=== PATIENT | male | born 1960 | race American Indian/Alaskan Native ===

== ENCOUNTER 2018-03-27 21:03 | Emergency (ER) | payer SELFPAY ==
[2018-03-27 21:03] VITALS: BMI 24.3
[2018-03-27 22:17] LABS: MEAN CORPUSCULAR HGB CONC 30.1 g/dL (33.0-37.0); MEAN PLATELET VOLUME 8.4 fL (7.2-11.7); NRBC % 0.5 % (0.0-2.0)
[2018-03-27 22:21] LABS: URINE BILIRUBIN NEGATIVE (NEGATIVE); URINE CLARITY Clear (Clear); URINE COLOR Yellow (YELLOW); URINE GLUCOSE (UA) NORMAL (Normal); URINE LEUKOCYTE ESTERASE NEG Leu/uL (Negative); URINE PROTEIN NEGATIVE (NEGATIVE)
[2018-03-27 22:29] LABS: BASO % 0.6 % (0.0-2.0); EOS % 1.1 % (0.0-4.0); HEMOGLOBIN 6.8 g/dL (12.0-18.0); LYMPH # 2.9 K/uL (1.0-4.3); LYMPH % 75.4 % (20.0-40.0); MEAN CELL VOLUME 65.7 fL (80.0-94.0); MEAN CORPUSCULAR HEMOGLOBIN 19.8 pg (27.0-31.0); MONO # 0.3 K/uL (0.0-0.8); MONO % 8.6 % (0.0-10.0); NEUT # 0.5 K/uL (1.8-7.0); NEUT % 14.3 % (50.0-75.0); RBC 3.46 Mil/uL (4.40-5.90); RED CELL DISTRIBUTION WIDTH 22.8 % (11.5-14.5); WHITE BLOOD COUNT 3.8 K/uL (4.8-10.8)
[2018-03-27 22:32] LABS: PLATELET COUNT 48 K/uL (130-400)
[2018-03-27 22:35] LABS: BARBITURATES, UR NEGATIVE (NEGATIVE); BENZODIAZEPINES, UR NEGATIVE (NEGATIVE); OPIATES, UR NEGATIVE (NEGATIVE); PHENCYCLIDINE, UR NEGATIVE (NEGATIVE)
[2018-03-27 22:43] LABS: ALB/GLOB RATIO 0.7 (1.0-2.1); ALBUMIN 3.6 g/dL (3.5-5.0); ALT/SGPT 66 U/L (21-72); AST/SGOT 244 U/L (17-59); BLOOD UREA NITROGEN 11 mg/dL (9-20); CALCIUM 8.5 mg/dl (8.6-10.4); GFR NON-AFRICAN AMERICAN > 60
[2018-03-27 22:54] LABS: ANISOCYTOSIS SLIGHT; BASOPHIL 2 % (0-2); EOSINOPHIL 4 % (0-4); LYMPHOCYTE 50 % (20-40); MONOCYTE 8 % (0-10); NEUTROPHIL 36 % (50-75); PLATELET ESTIMATE DECREASED (NORMAL); POIKILOCYTOSIS SLIGHT; TOTAL CELLS COUNTED 50
[2018-03-27 22:55] LABS: HYPOCHROMIC MARKED; MICROCYTOSIS SLIGHT; TARGET CELLS MODERATE
[2018-03-27 22:56] LABS: POLYCHROMIC SLIGHT
[2018-03-27 23:02] LABS: BASO % 0.4 % (0.0-2.0); EOS % 1.2 % (0.0-4.0); HEMOGLOBIN 6.8 g/dL (12.0-18.0); LYMPH # 2.9 K/uL (1.0-4.3); LYMPH % 78.9 % (20.0-40.0); MEAN CORPUSCULAR HEMOGLOBIN 19.9 pg (27.0-31.0); MEAN CORPUSCULAR HGB CONC 30.1 g/dL (33.0-37.0); MEAN PLATELET VOLUME 8.5 fL (7.2-11.7); MONO # 0.3 K/uL (0.0-0.8); MONO % 7.3 % (0.0-10.0); NEUT # 0.4 K/uL (1.8-7.0); NEUT % 12.2 % (50.0-75.0); NRBC % 0.5 % (0.0-2.0); RBC 3.43 Mil/uL (4.40-5.90); RED CELL DISTRIBUTION WIDTH 23.1 % (11.5-14.5); WHITE BLOOD COUNT 3.7 K/uL (4.8-10.8)
--- NOTE | 2018-03-27 23:06 | C.PDOC ---
Time Seen by Provider: 03/27/18 21:37 Chief Complaint (Nursing): Lower Extremity Problem/Injury Past Medical History Vital Signs: Last Vital Signs Temp 98 F 03/27/18 21:15 Pulse 100 H 03/27/18 21:15 Resp 18 03/27/18 21:15 BP 100/60 03/27/18 21:15 Pulse Ox 95 03/27/18 21:15 - Medical History PMH: Denies: Depression - [facility] Procedures INJECT/INFUSE NEC (09/28/03) - Social History Hx Alcohol Use: Yes Hx Substance Use: Yes - Immunization History Hx Tetanus Toxoid Vaccination: No Hx Influenza Vaccination: No Hx Pneumococcal Vaccination: No ED Course And Treatment - Laboratory Results Result Diagrams: 03/27/18 22:58 03/27/18 22:12 Lab Results: Total Bilirubin 1.4 mg/dL (0.2-1.3) H 03/27/18 22:12 AST 244 U/L (17-59) H 03/27/18 22:12 ALT 66 U/L (21-72) 03/27/18 22:12 Alkaline Phosphatase 171 U/L (38-126) H 03/27/18 22:12 Total Protein 8.4 g/dL (6.3-8.3) H 03/27/18 22:12 Albumin 3.6 g/dL (3.5-5.0) 03/27/18 22:12 Globulin 4.8 gm/dL (2.2-3.9) H 03/27/18 22:12 Albumin/Globulin Ratio 0.7 (1.0-2.1) L 03/27/18 22:12 ECG: Interpreted By Me, Viewed By Me ECG Rhythm: Sinus Rhythm (92), Nonspecific Changes O2 Sat by Pulse Oximetry: 95 Pulse Ox Interpretation: Normal Disposition - Disposition Forms: [employer] ([place]an)
[2018-03-27 23:10] LABS: URINE BLOOD NEGATIVE (NEGATIVE)
[2018-03-27 23:10] LABS: INR 1.5; PROTHROMBIN TIME 16.2 SECONDS (9.7-12.2)
[2018-03-27] MEDS ORDERED: Potassium Chloride 20 mEq ER Tab PO STA (23:13)
[2018-03-27] MEDS ORDERED: Potassium Chloride 20 mEq ER Tab PO ONE (23:20)
[2018-03-27] MEDS ORDERED: Magnesium Sulfate 1 gm in D5W 1 GM/100 ML BAG IVPB ONE ×2 (23:20→23:50)
[2018-03-27] MEDS: Magnesium Sulfate 1 gm in D5W 1 GM/100 ML BAG IVPB SCH ×2 (23:25→23:48)
[2018-03-27] MEDS ORDERED: Sodium Chloride 0.9% 1,000 ML IV ONE (23:26)
[2018-03-27] MEDS ORDERED: Sodium Chloride 0.9% 1,000 ML ONE (23:36)
--- NOTE | 2018-03-28 00:17 | C.PDOC ---
History Of Present Illness 58 year old male presents to the ED for evaluation of right knee pain, for which he states he was evaluated in [facility]. Patient is also requesting alcohol detox. He denies any other complaints at this time. Time Seen by Provider: 03/27/18 21:37 Chief Complaint (Nursing): Lower Extremity Problem/Injury History Per: Patient History/Exam Limitations: no limitations Onset/Duration Of Symptoms: Hrs Current Symptoms Are (Timing): Still Present Additional History Per: Patient Past Medical History Reviewed: Historical Data, Nursing Documentation, Vital Signs Vital Signs: Last Vital Signs Temp 98 F 03/27/18 21:15 Pulse 89 03/27/18 23:25 Resp 16 03/27/18 23:25 BP 116/76 03/27/18 23:25 Pulse Ox 98 03/27/18 23:25 - Medical History PMH: No Chronic Diseases Denies: Depression Surgical History: No Surg Hx - [facility] Procedures INJECT/INFUSE NEC (09/28/03) Family History: States: Unknown Family Hx - Social History Hx Alcohol Use: Yes Hx Substance Use: Yes - Immunization History Hx Tetanus Toxoid Vaccination: No Hx Influenza Vaccination: No Hx Pneumococcal Vaccination: No Review Of Systems Constitutional: Negative for: Fever, Chills Cardiovascular: Negative for: Chest Pain Respiratory: Negative for: Shortness of Breath Gastrointestinal: Negative for: Melena, Hematochezia, Hematemesis Musculoskeletal: Positive for: Other (right knee pain ) Neurological: Negative for: Weakness, Numbness Psych: Positive for: Other (alcohol detox ) Physical Exam - Physical Exam Appears: Non-toxic, No Acute Distress Skin: Normal Color, Warm, Dry, Other (pale nailbeds noted ) Head: Atraumatic, Normacephalic Eye(s): bilateral: Other (slightly pale conjunctiva ) Oral Mucosa: Moist Neck: Supple Chest: Symmetrical, No Deformity, No Tenderness Cardiovascular: Rhythm Regular, No Murmur Respiratory: Normal Breath Sounds, No Rales, No Rhonchi, No Wheezing Gastrointestinal/Abdominal: Soft, No Tenderness, No Guarding, No Rebound Rectal: Other (brown stool noted in rectum ) Extremity: Normal ROM, Capillary Refill Neurological/Psych: Oriented x3, Normal Speech, Normal Cognition ED Course And Treatment - Laboratory Results Result Diagrams: 03/27/18 22:58 03/28/18 00:55 Lab Results: PT 16.2 SECONDS (9.7-12.2) H 03/27/18 22:58 INR 1.5 03/27/18 22:58 APTT 31 SECONDS (21-34) 03/27/18 22:58 Total Bilirubin 1.4 mg/dL (0.2-1.3) H 03/27/18 22:12 AST 244 U/L (17-59) H 03/27/18 22:12 ALT 66 U/L (21-72) 03/27/18 22:12 Alkaline Phosphatase 171 U/L (38-126) H 03/27/18 22:12 Total Protein 8.4 g/dL (6.3-8.3) H 03/27/18 22:12 Albumin 3.6 g/dL (3.5-5.0) 03/27/18 22:12 Globulin 4.8 gm/dL (2.2-3.9) H 03/27/18 22:12 Albumin/Globulin Ratio 0.7 (1.0-2.1) L 03/27/18 22:12 Urine Color Yellow (YELLOW) 03/27/18 22:12 Urine Clarity Clear (Clear) 03/27/18 22:12 Urine pH 6.0 (5.0-8.0) 03/27/18 22:12 Ur Specific [place] 1.003 (1.003-1.030) 03/27/18 22:12 Urine Protein Negative mg/dL (NEGATIVE) 03/27/18 22:12 Urine Glucose (UA) Normal mg/dL (Normal) 03/27/18 22:12 Urine Ketones Negative mg/dL (NEGATIVE) 03/27/18 22:12 Urine Blood Negative (NEGATIVE) 03/27/18 22:12 Urine Nitrate Negative (NEGATIVE) 03/27/18 22:12 Urine Bilirubin Negative (NEGATIVE) 03/27/18 22:12 Urine Urobilinogen 2.0 mg/dL (0.2-1.0) 03/27/18 22:12 Ur Leukocyte Esterase Neg Juve/uL (Negative) 03/27/18 22:12 Urine WBC (Auto) < 1 /hpf (0-5) 03/27/18 22:12 Urine RBC (Auto) < 1 /hpf (0-3) 03/27/18 22:12 ECG: Interpreted By Me, Viewed By Me ECG Rhythm: Sinus Rhythm Rate From EC (nonspecific changes) O2 Sat by Pulse Oximetry: 98 (on RA ) Pulse Ox Interpretation: Normal Medical Decision Making Medical Decision Making: Progress: Bloodwork and urinalysis ordered and reviewed. Labwork for detox was reviewed. Patient found to be markedly anemic. Patient denies chest pain, shortness of breath, fatigue, dizziness, syncope, bleeding from mouth, nose or rectum, or dark stools. Guaiac stool test ordered and is negative. EKG ordered. Potassium Chloride PO, IV Fluids, and Magnesium Sulfate IVP given. [address] Camejo about medical admission; declines pt since he has no active bleeding and is asymptomatic, can have gi workup as an outpatient, await detox consult and can get med consult as inpatient detox. pt is medically stable for detox. anemia is chronic, no acute bleeding. . repeat chemistry drawn; k now 3.4 snd mg 1.9 0545 Notified by Seema from Crisis team that there is no longer a detox bed available. will s/o to oncoming team for detox bed. 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 - Scribe Statement The provider has reviewed the documentation as recorded by the Scribe (Maria M Mendes) All medical record entries made by the Scribe were at my direction and personally dictated by me. I have reviewed the chart and agree that the record accurately reflects my personal performance of the history, physical exam, medical decision making, and the department course for this patient. I have also personally directed, reviewed, and agree with the discharge instructions and disposition. Physician Patient Turnover Patient Signed Over To: Alexandra Mendoza Handoff Comments: crisis eval for detox
[2018-03-28 01:50] LABS: ALB/GLOB RATIO 0.8 (1.0-2.1); ALBUMIN 2.9 g/dL (3.5-5.0); ALT/SGPT 58 U/L (21-72); AST/SGOT 193 U/L (17-59); BLOOD UREA NITROGEN 10 mg/dL (9-20); CALCIUM 7.9 mg/dl (8.6-10.4); GFR NON-AFRICAN AMERICAN > 60
[2018-03-28 09:43] VITALS: BP 134/70; PULSE 98; RESP 20; TEMP 98; O2SAT 98
[2018-03-28] MEDS ORDERED: Potassium Chloride 20 mEq ER Tab PO SCH (10:00)
--- NOTE | 2018-03-29 11:26 | CARD ---
APPROVED REPORT Date of service: 03/27/2018 EKG Measurement Heart [id number] <Conclusion> Normal sinus rhythm Minimal voltage criteria for LVH, may be normal variant Prolonged QT Abnormal ECG
== END 2018-03-28 09:43 | disposition home or self-care (01) ==
LOC: C.ER 21:03 → EDBD 21:03 → C.ER 03-28 09:43
DX: F10.10 Alcohol abuse, uncomplicated (principal); Y90.6 Blood alcohol level of 120-199 mg/100 ml; D64.9 Anemia, unspecified; E83.42 Hypomagnesemia; E87.6 Hypokalemia
CPT/HCPCS: 36415; 80053; 81001; 83735; 84100; 85025; 85610; 85730; 86850; 86900; 93005; 96365; 96366; 99285; G0328; G0480; J3475; J7030

== ENCOUNTER 2018-03-28 13:53 | Emergency (ER) | payer OTHER ==
[2018-03-28 13:54] VITALS: BMI 24.3
--- NOTE | 2018-03-28 14:14 | C.PDOC ---
History Of Present Illness 58 y/o male presents to the ED requesting detox from alcohol. Last drink was yesterday. Patient denies any suicidal or homicidal ideation. No withdrawal symptoms at present. Patient offers no other complaints. Time Seen by Provider: 03/28/18 14:08 Chief Complaint (Nursing): Substance Abuse History Per: Patient History/Exam Limitations: no limitations Onset/Duration Of Symptoms: Days Current Symptoms Are (Timing): Still Present Past Medical History Reviewed: Historical Data, Nursing Documentation, Vital Signs - Medical History PMH: Denies: Depression - [facility] Procedures INJECT/INFUSE NEC (09/28/03) Family History: States: Unknown Family Hx - Social History Hx Alcohol Use: Yes Hx Substance Use: Yes - Immunization History Hx Tetanus Toxoid Vaccination: No Hx Influenza Vaccination: No Hx Pneumococcal Vaccination: No Review Of Systems Constitutional: Negative for: Fever Cardiovascular: Negative for: Chest Pain Respiratory: Negative for: Shortness of Breath Gastrointestinal: Negative for: Nausea, Vomiting Musculoskeletal: Negative for: Other (tremors) Neurological: Negative for: Weakness Psych: Positive for: Other (ETOH dependence). Negative for: Suicidal ideation, Withdrawal Physical Exam - Physical Exam Appears: Non-toxic, No Acute Distress Skin: Warm, Dry Head: Atraumatic, Normacephalic Eye(s): bilateral: Normal Inspection, PERRL, EOMI Neck: Normal ROM Chest: Symmetrical Respiratory: No Accessory Muscle Use, Other (Speaking in full sentences) Extremity: Bilateral: Atraumatic, Normal Color And Temperature Pulses: Left Radial: Normal, Right Radial: Normal Neurological/Psych: Oriented x3, Normal Speech ED Course And Treatment O2 Sat by Pulse Oximetry: 97 (RA) Pulse Ox Interpretation: Normal Medical Decision Making Medical Decision Making: Old records reviewed, the patient was seen in the ED for similar symptoms. Plan: Patient informed there are no detox beds available. Crisis provided outpatient resources. Disposition - Disposition Disposition: HOME/ ROUTINE Disposition Time: 14:14 Condition: GOOD Additional Instructions: Follow up with the medical doctor within 1-2 days, return if worsened. Instructions: Drug Abuse and Drug Addiction (DC) Forms: [employer] 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 - Scribe Statement The provider has reviewed the documentation as recorded by the Rupaliibphoenix Paez All medical record entries made by the Scribe were at my direction and personally dictated by me. I have reviewed the chart and agree that the record accurately reflects my personal performance of the history, physical exam, medical decision making, and the department course for this patient. I have also personally directed, reviewed, and agree with the discharge instructions and disposition.
[2018-03-28 14:16] VITALS: BP 152/82; PULSE 118; RESP 20; TEMP 98.7; O2SAT 97
== END 2018-03-28 15:09 | disposition home or self-care (01) ==
LOC: C.ER 13:53
DX: F19.10 Other psychoactive substance abuse, uncomplicated (principal)

== ENCOUNTER 2018-03-29 13:04 | Inpatient (IN) | payer MEDICAID, OTHER ==
[2018-03-29 13:25] VITALS: BMI 25.5
[2018-03-29 14:43] LABS: EOS # 0.1 K/uL (0.0-0.7); EOS % 2.9 % (0.0-4.0); LYMPH # 0.5 K/uL (1.0-4.3); LYMPH % 27.6 % (20.0-40.0); MEAN CELL VOLUME 67.2 fL (80.0-94.0); MEAN CORPUSCULAR HEMOGLOBIN 20.6 pg (27.0-31.0); MEAN CORPUSCULAR HGB CONC 30.7 g/dL (33.0-37.0); MEAN PLATELET VOLUME 8.7 fL (7.2-11.7); MONO # 0.5 K/uL (0.0-0.8); MONO % 29.4 % (0.0-10.0); NEUT # 0.7 K/uL (1.8-7.0); NEUT % 40.1 % (50.0-75.0); NRBC % 0.3 % (0.0-2.0); PLATELET COUNT 43 K/uL (130-400); RBC 3.14 Mil/uL (4.40-5.90); RED CELL DISTRIBUTION WIDTH 23.7 % (11.5-14.5)
[2018-03-29 15:02] LABS: WHITE BLOOD COUNT 1.7 K/uL (4.8-10.8)
[2018-03-29 15:03] LABS: HEMOGLOBIN 6.5 g/dL (12.0-18.0)
[2018-03-29 15:08] LABS: ALB/GLOB RATIO 0.8 (1.0-2.1); ALBUMIN 3.1 g/dL (3.5-5.0); ALT/SGPT 53 U/L (21-72); AST/SGOT 137 U/L (17-59); BLOOD UREA NITROGEN 9 mg/dL (9-20); GFR NON-AFRICAN AMERICAN > 60
[2018-03-29] MEDS ORDERED: Potassium Chloride 20 mEq ER Tab PO STA (15:21)
[2018-03-29] MEDS ORDERED: Magnesium Sulfate 1 gm in D5W 2 GM/200 ML BAG IVPB ONE (15:47)
[2018-03-29] MEDS ORDERED: Potassium Chloride 20 mEq ER Tab PO ONE (15:47)
[2018-03-29 15:52] LABS: EOSINOPHIL 6 % (0-4); LYMPHOCYTE 40 % (20-40); MONOCYTE 17 % (0-10); NEUTROPHIL 37 % (50-75); TOTAL CELLS COUNTED 100
[2018-03-29 15:53] LABS: PLATELET ESTIMATE DECREASED (NORMAL)
[2018-03-29 15:54] LABS: ANISOCYTOSIS MODERATE; HYPOCHROMIC MODERATE; MICROCYTOSIS SLIGHT; POLYCHROMIC SLIGHT; TARGET CELLS SLIGHT
[2018-03-29 15:55] LABS: ROULEAUX FORMATION SLIGHT
[2018-03-29] MEDS: Magnesium Sulfate 1 gm in D5W 1 GM/100 ML BAG IVPB SCH ×4 (16:14→20:45)
--- NOTE | 2018-03-29 16:18 | RAD ---
HISTORY: SOB COMPARISON: None available. TECHNIQUE: Chest PA and lateral FINDINGS: LUNGS: No focal consolidation. Please note that chest x-ray has limited sensitivity for the detection of pulmonary masses. PLEURA: No significant pleural effusion identified. No definite pneumothorax . CARDIOVASCULAR: Heart size appears within normal limits. Ectatic aorta. Atherosclerotic calcifications. OSSEOUS STRUCTURES: No acute osseous abnormality identified. VISUALIZED UPPER ABDOMEN: Unremarkable. OTHER FINDINGS: None. IMPRESSION: No focal consolidation.
[2018-03-29 16:31] LABS: SQUAMOUS EPITHIAL < 1 /hpf (0-5); URINE BILIRUBIN NEGATIVE (NEGATIVE); URINE BLOOD 2+ (NEGATIVE); URINE CLARITY Clear (Clear); URINE COLOR Amber (YELLOW); URINE GLUCOSE (UA) NORMAL (Normal); URINE LEUKOCYTE ESTERASE NEG Leu/uL (Negative); URINE PROTEIN NEGATIVE (NEGATIVE)
--- NOTE | 2018-03-29 16:37 | C.PDOC ---
History Of Present Illness 58 year old male presents to the ED requesting alcohol detox. Patient was evaluated in the ED yesterday for the same, and was informed about the unavailability of detox beds at the time. Patient was also noted to be anemic, with hemoglobin on 6.8. Patient states his last drink was two days ago. He denies chest pain, shortness of breath, nausea, vomiting, diarrhea, blood in stool, dizziness, syncope, shakiness, tremors. Time Seen by Provider: 03/29/18 13:32 Chief Complaint (Nursing): Substance Abuse History Per: Patient History/Exam Limitations: no limitations Onset/Duration Of Symptoms: Hrs Current Symptoms Are (Timing): Still Present Modifying Factor(s): Alcohol Associated Symptoms: denies: Suicidal Thoughts, Suicidal Plan Involuntary Hold By: None Recent travel outside of the [place]: No Additional History Per: Patient Past Medical History Reviewed: Historical Data, Nursing Documentation, Vital Signs Vital Signs: Last Vital Signs Temp 98.5 F 03/29/18 13:25 Pulse 69 03/29/18 16:21 Resp 20 03/29/18 16:21 BP 124/73 03/29/18 16:21 Pulse Ox 100 03/29/18 13:25 - Medical History PMH: Anemia Denies: Depression, Diabetes, Hepatitis, HIV, HTN, Seizures, Sexually Transmitted Disease Surgical History: No Surg Hx - [facility] Procedures INJECT/INFUSE NEC (09/28/03) Family History: States: Unknown Family Hx - Social History Hx Alcohol Use: Yes (beer) Hx Substance Use: No - Immunization History Hx Tetanus Toxoid Vaccination: Yes Hx Influenza Vaccination: Yes Hx Pneumococcal Vaccination: Yes Review Of Systems Constitutional: Positive for: Other (anemia ) Cardiovascular: Negative for: Chest Pain Respiratory: Negative for: Shortness of Breath Gastrointestinal: Negative for: Vomiting, Hematochezia, Hematemesis Neurological: Negative for: Dizziness, Other (syncope, shakiness, tremors ) Psych: Positive for: Other (alcohol detox ) Physical Exam - Physical Exam Appears: Non-toxic, No Acute Distress Skin: Normal Color, Warm, Dry Head: Atraumatic, Normacephalic Eye(s): bilateral: Conjunctiva Pale (mild), Other (muddy sclera ) Oral Mucosa: Moist Neck: Supple Chest: Symmetrical, No Deformity, No Tenderness Cardiovascular: Rhythm Regular, No Murmur Respiratory: Normal Breath Sounds, No Rales, No Rhonchi, No Wheezing Gastrointestinal/Abdominal: Soft, No Tenderness, No Guarding, No Rebound Extremity: Normal ROM, Capillary Refill (less than 2 seconds ) Neurological/Psych: Oriented x3, Normal Speech, Normal Cognition, Normal Motor, Normal Sensation Gait: Steady ED Course And Treatment - Laboratory Results Result Diagrams: 03/30/18 07:17 03/30/18 07:17 Lab Results: Total Bilirubin 1.5 mg/dL (0.2-1.3) H 03/29/18 14:40 AST 137 U/L (17-59) H D 03/29/18 14:40 ALT 53 U/L (21-72) 03/29/18 14:40 Alkaline Phosphatase 163 U/L (38-126) H 03/29/18 14:40 Total Protein 7.2 g/dL (6.3-8.3) 03/29/18 14:40 Albumin 3.1 g/dL (3.5-5.0) L 03/29/18 14:40 Globulin 4.1 gm/dL (2.2-3.9) H 03/29/18 14:40 Albumin/Globulin Ratio 0.8 (1.0-2.1) L 03/29/18 14:40 Urine Color Claudia (YELLOW) 03/29/18 16:21 Urine Clarity Clear (Clear) 03/29/18 16:21 Urine pH 6.0 (5.0-8.0) 03/29/18 16:21 Ur Specific [place] 1.012 (1.003-1.030) 03/29/18 16:21 Urine Protein Negative mg/dL (NEGATIVE) 03/29/18 16:21 Urine Glucose (UA) Normal mg/dL (Normal) 03/29/18 16:21 Urine Ketones Negative mg/dL (NEGATIVE) 03/29/18 16:21 Urine Blood 2+ (NEGATIVE) H 03/29/18 16:21 Urine Nitrate Negative (NEGATIVE) 03/29/18 16:21 Urine Bilirubin Negative (NEGATIVE) 03/29/18 16:21 Urine Urobilinogen 4.0 mg/dL (0.2-1.0) 03/29/18 16:21 Ur Leukocyte Esterase Neg Juve/uL (Negative) 03/29/18 16:21 Urine WBC (Auto) < 1 /hpf (0-5) 03/29/18 16:21 Urine RBC (Auto) 3 /hpf (0-3) 03/29/18 16:21 Ur Squamous Epith Cells < 1 /hpf (0-5) 03/29/18 16:21 O2 Sat by Pulse Oximetry: 100 (on RA) Pulse Ox Interpretation: Normal - Other Rad CXR X-Ray: Viewed By Me, Read By Radiologist Interpretation: HISTORY: SOB. COMPARISON: None available. TECHNIQUE: Chest PA and lateral. FINDINGS: LUNGS: No focal consolidation. Please note that chest x-ray has limited sensitivity for the detection of pulmonary masses. PLEURA: No significant pleural effusion identified. No definite pneumothorax . CARDIOVASCULAR: Heart size appears within normal limits. Ectatic aorta. Atherosclerotic calcifications. OSSEOUS STRUCTURES: No acute osseous abnormality identified. VISUALIZED UPPER ABDOMEN: Unremarkable. OTHER FINDINGS: None. IMPRESSION: No focal consolidation. Medical Decision Making Medical Decision Making: Progress: Bloodwork, urinalysis, EKG and CXR ordered and reviewed. Case discussed with Dr. Destin Mendes (hospitalist), who accepts pt to his service, will evaluate the patient at bedside and advises to order: * Folate * Vitamin B12 * Parietal cell antibiotics * direct bilirubin * retic count * heptoglobin * homocysteine * TIBC * Feratin * Methylmelanic acid * Peripheral smear - unable to order (inpatient only) Transfusion paperwork reviewed and signed by patient. Patient will need psychiatric consult on floor. 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 Disposition - Disposition Disposition: HOSPITALIZED Disposition Time: 17:00 Condition: STABLE - POA Present On Arrival: None - Clinical Impression Clinical Impression: Alcohol use disorder, Pancytopenia, Anemia requiring transfusions, Hypo magnesemia, Hypokalemia, Elevated LFTs - Scribe Statement The provider has reviewed the documentation as recorded by the Scribe (Maria M Mendes) Provider Attestation: All medical record entries made by the Scribe were at my direction and personally dictated by me. I have reviewed the chart and agree that the record accurately reflects my personal performance of the history, physical exam, medical decision making, and the department course for this patient. I have also personally directed, reviewed, and agree with the discharge instructions and disposition.
[2018-03-29 16:38] LABS: INR 1.7; PROTHROMBIN TIME 18.1 SECONDS (9.7-12.2)
[2018-03-29 16:45] LABS: BARBITURATES, UR NEGATIVE (NEGATIVE); BENZODIAZEPINES, UR NEGATIVE (NEGATIVE); OPIATES, UR NEGATIVE (NEGATIVE); PHENCYCLIDINE, UR NEGATIVE (NEGATIVE)
[2018-03-29 17:50] LABS: BILIRUBIN,DIRECT 1.2 mg/dL (0.0-0.4)
[2018-03-29 17:51] LABS: IRON 12 ug/dL (49-181)
[2018-03-29 18:02] LABS: % IRON SATURATION 3 (20-55); TOTAL IRON BINDING CAPACITY 394 ug/dL (250-450)
[2018-03-29] MEDS ORDERED: Multivitamin (MVI) 10 ML, Thiamine 100 MG, Folic Acid 1 MG in Sodium Chloride 0.9% 1,00... IV ONE (18:04)
[2018-03-29 18:26] LABS: FERRITIN 6.8 ng/mL
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
[2018-03-30 07:52] LABS: HEMOGLOBIN 7.1 g/dL (12.0-18.0); MEAN CELL VOLUME 68.5 fL (80.0-94.0); MEAN CORPUSCULAR HEMOGLOBIN 21.4 pg (27.0-31.0); MEAN CORPUSCULAR HGB CONC 31.2 g/dL (33.0-37.0); MEAN PLATELET VOLUME 8.5 fL (7.2-11.7); RBC 3.33 Mil/uL (4.40-5.90); RED CELL DISTRIBUTION WIDTH 24.5 % (11.5-14.5); WHITE BLOOD COUNT 2.1 K/uL (4.8-10.8)
[2018-03-30 08:00] LABS: ALB/GLOB RATIO 0.7 (1.0-2.1); ALBUMIN 2.6 g/dL (3.5-5.0); ALT/SGPT 49 U/L (21-72); AST/SGOT 88 U/L (17-59); BLOOD UREA NITROGEN 7 mg/dL (9-20); CALCIUM 7.4 mg/dl (8.6-10.4); GFR NON-AFRICAN AMERICAN > 60
[2018-03-30] MEDS: Potassium Chloride 20 mEq ER Tab PO SCH (10:22)
[2018-03-30 10:28] LABS: LYMPH # 0.8 K/uL (1.0-4.3); MONO # 0.4 K/uL (0.0-0.8); NEUT # 0.9 K/uL (1.8-7.0)
[2018-03-30] MEDS: Magnesium Sulfate 1 gm in D5W 1 GM/100 ML BAG IVPB SCH ×2 (12:55→13:34)
--- NOTE | 2018-03-30 19:15 | CP.PCM.CON ---
History of Present Illness - History of Present Illness History of Present Illness: 58 year old male with a history of alcoholism, presenting for alcohol detox, found to be pancytopenic. The patient notes to drinking 12 beers daily. He denies abnormal bleeding and bruising. He has no fevers and chills. He is unaware of blood problems in the past. Past medical history: Alcoholism Past surgical history: Denies Family history: Denies hematologic and oncologic problems Social history: +tobacco, +alcohol Allergies: NKA Review of systems: All remaining review of systems including HEENT, cardiovascular, respiratory, gastrointestinal, genitourinary, musculoskeletal, dermatologic, neurologic, and psychiatric are negative unless mentioned in the HPI. Past Patient History - Past Medical History & Family History Past Medical History?: Yes - Past Social History Smoking Status: Heavy Smoker > 10 Cigarettes Daily - CARDIAC Hx Hypertension: No - PULMONARY Hx Tuberculosis: No - NEUROLOGICAL Hx Seizures: No - HEMATOLOGICAL/ONCOLOGICAL Hx Anemia: Yes Hx Human Immunodeficiency Virus (HIV): No - MUSCULOSKELETAL/RHEUMATOLOGICAL Hx Falls: No - GENITOURINARY/GYNECOLOGICAL Hx Sexually Transmitted Disorders: No - PSYCHIATRIC Hx Depression: No Hx Substance Use: No - SURGICAL HISTORY Hx Surgeries: No - ANESTHESIA Hx Anesthesia: Yes Hx Anesthesia Reactions: No Hx Malignant Hyperthermia: No Meds Allergies/Adverse Reactions: Allergies Allergy/AdvReac Type Severity Reaction Status Date / Time No Known Allergies Allergy Verified 03/29/18 13:24 - Medications Medications: Current Medications Influenza Virus Vaccine (Flucelvax Quad 6528-4038 Syr) 60 mcg IM .ONCE ONE Stop: 03/31/18 10:01 Lorazepam (Ativan) 1 mg PO Q4 PRN PRN Reason: Symptoms of alcohol withdrawl Last Admin: 03/30/18 10:22 Dose: 1 mg Pneumococcal Polyvalent Vaccine (Pneumovax 23 Vaccine) 0.5 ml IM .ONCE ONE Stop: 03/31/18 10:01 Potassium Chloride (K-Dur 20 Meq Er Tab) 20 meq PO DAILY NIA Last Admin: 03/30/18 10:22 Dose: 20 meq Physical Exam - Head Exam Head Exam: ATRAUMATIC - Eye Exam Eye Exam: Normal appearance - ENT Exam ENT Exam: Mucous Membranes Dry - Respiratory Exam Respiratory Exam: NORMAL BREATHING PATTERN - Cardiovascular Exam Cardiovascular Exam: +S1, +S2 - GI/Abdominal Exam GI & Abdominal Exam: Normal Bowel Sounds - Neurological Exam Neurological exam: Oriented x3 - Psychiatric Exam Psychiatric exam: Normal Affect, Normal Mood - Skin Skin Exam: Warm Results - Vital Signs Recent Vital Signs: Last Vital Signs Temp 98.2 F 03/30/18 18:35 Pulse 82 03/30/18 17:29 Resp 18 03/30/18 17:29 BP 144/86 03/30/18 17:29 Pulse Ox 99 03/30/18 16:00 - Labs Result Diagrams: 03/30/18 07:17 03/30/18 07:17 Labs: Laboratory Results - last 24 hr 03/29/18 03/29/18 03/30/18 16:17 17:33 07:17 WBC 2.1 L RBC 3.33 L Hgb 7.1 L Hct 22.8 L MCV 68.5 L MCH 21.4 L MCHC 31.2 L RDW 24.5 H Plt Count 43 L MPV 8.5 Neut % (Auto) 43.0 L Lymph % (Auto) 37.0 [place] % (Auto) 18.0 H Eos % (Auto) 2.0 Baso % (Auto) 0.0 Neut # (Auto) 0.9 L Lymph # (Auto) 0.8 L [place] # (Auto) 0.4 Eos # (Auto) 0.0 Baso # (Auto) 0.0 Sodium Potassium Chloride Carbon Dioxide Anion Gap BUN Creatinine Est GFR ( Amer) Est GFR (Non-Af Amer) Random Glucose Calcium Phosphorus Magnesium Total Bilirubin AST ALT Alkaline Phosphatase Total Protein Albumin Globulin Albumin/Globulin Ratio Homocysteine 11.0 Blood Type O POSITIVE Antibody Screen Negative 03/30/18 07:17 WBC RBC Hgb Hct MCV MCH MCHC RDW Plt Count MPV Neut % (Auto) Lymph % (Auto) [place] % (Auto) Eos % (Auto) Baso % (Auto) Neut # (Auto) Lymph # (Auto) [place] # (Auto) Eos # (Auto) Baso # (Auto) Sodium 134 Potassium 3.1 L Chloride 105 Carbon Dioxide 23 Anion Gap 9 L BUN 7 L Creatinine 0.6 L Est GFR ( Amer) > 60 Est GFR (Non-Af Amer) > 60 Random Glucose 97 Calcium 7.4 L Phosphorus 3.0 Magnesium 1.5 L Total Bilirubin 1.4 H AST 88 H D ALT 49 Alkaline Phosphatase 179 H Total Protein 6.1 L Albumin 2.6 L Globulin 3.6 Albumin/Globulin Ratio 0.7 L Homocysteine Blood Type Antibody Screen Assessment & Plan (1) Pancytopenia Assessment and Plan: iron deficiency anemia - will start IV iron consider GI evaluation - okay as outpatient transfusion support HIV and hepatitis panel ? liver disease ?bone marrow suppression from ETOH Thank you for this interesting consult. Status: Acute
--- NOTE | 2018-03-30 19:54 | CP.PCM.PN ---
Subjective - Date & Time of Evaluation Date of Evaluation: 03/30/18 Time of Evaluation: 02:30 - Subjective Subjective: Medicine progress note ( Dr. Destin Mendes's service) Patient was seen and examined at bedside, while resting comfortably in bed. Patient reports that he is doing well and as no acute complaints or issues. Patient is without withdrawal symptoms. Objective - Vital Signs/Intake and Output Vital Signs (last 24 hours): Temp Pulse Resp BP Pulse Ox 98.2 F 87 18 120/72 99 03/30/18 19:50 03/30/18 19:50 03/30/18 19:50 03/30/18 19:50 03/30/18 16:00 Intake and Output: 03/30/18 03/31/18 18:59 06:59 Intake Total 325 0 Output Total 500 Balance -175 0 - Medications Medications: Current Medications Influenza Virus Vaccine (Flucelvax Quad 1700-8744 Syr) 60 mcg IM .ONCE ONE Stop: 03/31/18 10:01 Lorazepam (Ativan) 1 mg PO Q4 PRN PRN Reason: Symptoms of alcohol withdrawl Last Admin: 03/30/18 10:22 Dose: 1 mg Pneumococcal Polyvalent Vaccine (Pneumovax 23 Vaccine) 0.5 ml IM .ONCE ONE Stop: 03/31/18 10:01 Potassium Chloride (K-Dur 20 Meq Er Tab) 20 meq PO DAILY NIA Last Admin: 03/30/18 10:22 Dose: 20 meq - Labs Labs: 03/30/18 07:17 03/30/18 07:17 PT 18.1 SECONDS (9.7-12.2) H 03/29/18 16:21 INR 1.7 03/29/18 16:21 APTT 32 SECONDS (21-34) 03/29/18 16:21 - Constitutional Appears: No Acute Distress - Head Exam Head Exam: ATRAUMATIC - ENT Exam ENT Exam: Mucous Membranes Moist - Neck Exam Additional comments: Lipoma posteriorly - Respiratory Exam Respiratory Exam: NORMAL BREATHING PATTERN - Cardiovascular Exam Cardiovascular Exam: REGULAR RHYTHM, +S1, +S2 - GI/Abdominal Exam GI & Abdominal Exam: Soft, Normal Bowel Sounds. absent: Distended, Firm, Guarding, Rigid, Organomegaly - Extremities Exam Extremities Exam: absent: Calf Tenderness, Pedal Edema - Back Exam Back Exam: absent: CVA tenderness (L), CVA tenderness (R) - Neurological Exam Neurological Exam: Alert, Awake, Oriented x3 - Psychiatric Exam Psychiatric exam: Normal Affect - Skin Skin Exam: Normal Color Assessment and Plan (1) Pancytopenia Assessment & Plan: Possibly 2/2 to bone marrow suppression from chronic alcohol abuse Consultation: Hematology/Oncology, Dr. Soriano---> Help appreciated * F/u recommendation Status: Acute (2) Anemia requiring transfusions Assessment & Plan: Possibly 2/2 to bone marrow suppression from chronic alcohol abuse Lab work-up: * IRON: 12 * TIBC:394 * Ferritin: 6.8 * Vitamin B12: 813 * Homocysteine: 11.0 * Reticulocyte: 3.4 * Haptoglobin:48.1 * F/u Folate, methylmalonic acid and peripheral smear and HIV and Hepatitis Panel * Stool Occult: Negative Management: -S/P 2unit PRBC 03/29/18: (6.5--->7.1) - Plans for another 2 units of PRBC (03/30/18)--> f/u H/H with am labs Status: Acute (3) Alcohol use disorder Assessment & Plan: CIWA protocol Ativan 1mg PO Q4H PRN for withdrawal Thiamine 100mg PO daily Folic acid 1mg PO daily Multivitamin 1 tab Po daily Possible to inpatient psych Status: Acute (4) Hypokalemia Assessment & Plan: k-DUR 20meq once daily Status: Acute (5) Prophylactic measure Assessment & Plan: GI: Not indicated DVT: SCDs, chemical agent contraindicated in light of pancytopenia All plans and management discussed with Dr. Destin Mendes Status: Acute
[2018-03-30 23:35] VITALS: RESP 20
[2018-03-31 08:01] LABS: MEAN CORPUSCULAR HEMOGLOBIN 23.3 pg (27.0-31.0); MEAN CORPUSCULAR HGB CONC 31.5 g/dL (33.0-37.0); MEAN PLATELET VOLUME 8.6 fL (7.2-11.7); RBC 3.95 Mil/uL (4.40-5.90); RED CELL DISTRIBUTION WIDTH 27.7 % (11.5-14.5); WHITE BLOOD COUNT 2.6 K/uL (4.8-10.8)
[2018-03-31 08:12] LABS: HEMOGLOBIN 9.2 g/dL (12.0-18.0); MEAN CELL VOLUME 73.8 fL (80.0-94.0)
[2018-03-31 08:20] LABS: ALB/GLOB RATIO 0.7 (1.0-2.1); ALBUMIN 2.7 g/dL (3.5-5.0); ALT/SGPT 41 U/L (21-72); AST/SGOT 68 U/L (17-59); BLOOD UREA NITROGEN 10 mg/dL (9-20); CALCIUM 7.7 mg/dl (8.6-10.4); GFR NON-AFRICAN AMERICAN > 60
[2018-03-31 09:01] VITALS: BP 151/87; PULSE 82; TEMP 98.2; O2SAT 99
--- NOTE | 2018-03-31 09:52 | CP.PCM.PN ---
Subjective - Date & Time of Evaluation Date of Evaluation: 03/31/18 Time of Evaluation: 09:30 - Subjective Subjective: Hospitalist Progress Note Patient was seen and examined at 9:30 AM. Upon FULL ROS: NO chest pain NO palpitations NO SOB/Cough/Wheezing NO dysphagia/odynophagia NO n/v/d/c: moving his bowels normally NO abdominal pain/cramping NO burning/pain with urination NO lightheadedness/dizziness NO new changes in vision: explained that he can not see close up but that this has been going on for past 2 years NO new changes in hearing NO paresthesias NO headaches NO auditory/visual hallucinations General: Was asleep in bed but easily arousable. NO signs of distress. AAOX3 HEENT: NCA, PERRLA, EOMI, No cervical lympadenopathy, NO thyromegaly, NO pharyngeal erythema/exudate Cardio: NS1 and NS2, NO M/R/G Resp: CTA B/L, NO R/R/W GI: BSx4, Soft, NT, ND, NO HSM, NO guarding/rebound tenderness Ext: Pulses are strong and equal, NO edema noted, Capillary Refill is 2 seconds. Neuro: CN II through XII are grossly intact, NO asterixis, NO tremors noted Assessment: 1). 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 HIV and Hepatitis Panel is pending. Recieved total of 4 units of blood. Stool occult is negative. Will need to be on Ferrous sulfate and have outpatient Colonoscopy and follow up with Hematology as an outpatient. 2). Alcohol Abuse: no signs of withdrawl on exam. There is no need for transfer to detox unit at this time. Stressed with patient and Sister Nayely (via phone) this morning the need for follow up with AA as outpatient. 3). Hypokalemia: improved. KCl 40 mEQ PO x 1 dose more before discharge Extensive conversation with patient concerning the need for alcohol cessation and attendance of AA meetings. Explained that as there are NO signs of withdrawl and that as his HgB/Hct have now improved since the PRBC tranfusions. This was also explained at length to sister Nayely via phone as patient requested requested that she be informed of his status. Explained to patient and Nayely that he will need to follow up with our clinic here at [facility] for referrals for GI for Colonoscopy and Hematology for further evaluation of the pancytopenia and also follow up with the clinic for pending lab results such as the HIV and Hepatitis Panel blood work. Spoke with Nursing Cottage Supervisor Janice to request help in providing patient with transportation voucher so that he may be transported to Sister Nayely's residence. The following instructions were thoroughly explained to patient and sister Nayely and copy will need to be provided to patient upon his discharge: 1). Schedule follow appointment with the [facility]/Clinic located on [address] of [address] in [place], [place] by calling [phone] for an appointment to take place in the next 7 to 10 days. The physicians at this clinic will be your primary care providers and will help you to coordinate your health care. Through this clinic you will need to obtain referrals for Gastroenterology for Colonoscopy that is due as well as evaluation by Special Officer for your low blood cell counts. You will also need to follow up through the clinic the results of your blood work test for HIV and Hepatitis, and other blood workup for your anemia which were pending at the time of your discharge. 2). You do not have any signs of alcohol withdrawl at the time of your discharge and therefore as of the time of your discharge your detoxification from alcohol is complete and that is why you were not transferred to the detox unit at [facility]. 3). Please make sure to contact [phone] or [phone] for help in finding the nearest Alcohol Anonymous meeting near you. It is important for your to go to AA meetings and utilize the resources provided by them to help you stop drinking alcohol. 4). You can purchase the following supplements at your pharmacy without a prescription. Please do so. Iron 325 mg, 1 tablet by mouth with breakfast and dinner Generic Multivitamin, 1 tablet by mouth with breakfast 5). Please follow the above instructions. Failure to do so can result in serious harm to your health. 6). Please take care and be well. Destin Mendes D.O. Objective - Vital Signs/Intake and Output Vital Signs (last 24 hours): Temp Pulse Resp BP Pulse Ox 98.2 F 82 20 151/87 H 99 03/31/18 08:00 03/31/18 08:00 03/31/18 08:00 03/31/18 08:00 03/31/18 08:00 Intake and Output: 03/31/18 03/31/18 06:59 18:59 Intake Total 1725 Output Total 1550 Balance 175 - Medications Medications: Current Medications Folic Acid (Folic Acid) 1 mg PO DAILY PENDING SALE TO [facility] Ferric Sodium Gluconate Complex 125 mg/ Sodium Chloride 110 mls @ 110 mls/hr IVPB DAILY NIA Stop: 04/08/18 10:01 Influenza Virus Vaccine (Flucelvax Quad [id number] Syr) 60 mcg IM .ONCE ONE Stop: 03/31/18 10:01 Lorazepam (Ativan) 1 mg PO Q4 PRN PRN Reason: Symptoms of alcohol withdrawl Last Admin: 03/30/18 10:22 Dose: 1 mg Multivitamins (Hexavitamin) 1 tab PO DAILY PENDING SALE TO [facility] Pneumococcal Polyvalent Vaccine (Pneumovax 23 Vaccine) 0.5 ml IM .ONCE ONE Stop: 03/31/18 10:01 Potassium Chloride (K-Dur 20 Meq Er Tab) 20 meq PO DAILY PENDING SALE TO [facility] Last Admin: 03/30/18 10:22 Dose: 20 meq Thiamine HCl (Vitamin B1 Tab) 100 mg PO DAILY PENDING SALE TO [facility] - Labs Labs: 03/31/18 07:46 03/31/18 07:44 PT 18.1 SECONDS (9.7-12.2) H 03/29/18 16:21 INR 1.7 03/29/18 16:21 APTT 32 SECONDS (21-34) 03/29/18 16:21
[2018-03-31] MEDS ORDERED: Ferric Sodium Gluconat Complex 62.5 mg/5 ml Vial IVPB SCH (10:00)
[2018-03-31] MEDS ORDERED: Influenza Vaccine 60 mcg/0.5 mL SYR (4YR UP) IM ONE (10:00)
[2018-03-31] MEDS ORDERED: Ferric Sodium Gluconat Complex 125 MG in Sodium Chloride 0.9% 100 ML IVPB SCH (10:00)
[2018-03-31] MEDS ORDERED: Pneumococcal 23-Valent Vaccine IM ONE (10:00)
[2018-03-31] MEDS ORDERED: Multiple Vitamins Tab PO SCH (10:00)
[2018-03-31] MEDS: Potassium Chloride 20 mEq ER Tab PO SCH (10:01)
[2018-03-31 10:44] LABS: EOS # 0.1 K/uL (0.0-0.7); LYMPH # 0.9 K/uL (1.0-4.3); MONO # 0.4 K/uL (0.0-0.8); NEUT # 1.2 K/uL (1.8-7.0)
[2018-03-31] MEDS ORDERED: Potassium Chloride 20 mEq ER Tab PO ONE (11:00)
--- NOTE | 2018-03-31 20:55 | CP.PCM.DIS ---
Provider - Provider Date of Admission: 03/29/18 16:46 Attending physician: Destin Mendes MD Consults: 03/29/18 16:43 Hematology Oncology Consult Routine Comment: Consulting Provider: Raymond Soriano Consulting Physician: Raymond Soriano Reason for Consult: bone marrow suppression Time Spent in preparation of Discharge (in minutes): 35 Diagnosis - Discharge Diagnosis (1) Pancytopenia Status: Acute (2) Anemia requiring transfusions Status: Acute (3) Alcohol use disorder Status: Acute (4) Hypokalemia Status: Acute (5) Prophylactic measure Status: Acute Hospital Course - Lab Results Lab Results: Most Recent Lab Values WBC 2.6 K/uL (4.8-10.8) L 03/31/18 07:46 RBC 3.95 Mil/uL (4.40-5.90) L 03/31/18 07:46 Hgb 9.2 g/dL (12.0-18.0) L D 03/31/18 07:46 Hct 29.2 % (35.0-51.0) L 03/31/18 07:46 MCV 73.8 fL (80.0-94.0) L D 03/31/18 07:46 MCH 23.3 pg (27.0-31.0) L 03/31/18 07:46 MCHC 31.5 g/dL (33.0-37.0) L 03/31/18 07:46 RDW 27.7 % (11.5-14.5) H 03/31/18 07:46 Plt Count 47 K/uL (130-400) L 03/31/18 07:46 MPV 8.6 fL (7.2-11.7) 03/31/18 07:46 Neut % (Auto) 47.0 % (50.0-75.0) L 03/31/18 07:46 Lymph % (Auto) 34.0 % (20.0-40.0) 03/31/18 07:46 [place] % (Auto) 16.0 % (0.0-10.0) H 03/31/18 07:46 Eos % (Auto) 3.0 % (0.0-4.0) 03/31/18 07:46 Baso % (Auto) 0.0 % (0.0-2.0) 03/31/18 07:46 Neut # (Auto) 1.2 K/uL (1.8-7.0) L 03/31/18 07:46 Lymph # (Auto) 0.9 K/uL (1.0-4.3) L 03/31/18 07:46 [place] # (Auto) 0.4 K/uL (0.0-0.8) 03/31/18 07:46 Eos # (Auto) 0.1 K/uL (0.0-0.7) 03/31/18 07:46 Baso # (Auto) 0.0 K/uL (0.0-0.2) 03/31/18 07:46 Neutrophils % (Manual) 37 % (50-75) L 03/29/18 14:40 Lymphocytes % (Manual) 40 % (20-40) 03/29/18 14:40 Monocytes % (Manual) 17 % (0-10) H 03/29/18 14:40 Eosinophils % (Manual) 6 % (0-4) H 03/29/18 14:40 Platelet Estimate Decreased (NORMAL) L 03/29/18 14:40 Polychromasia Slight 03/29/18 14:40 Hypochromasia (manual) Moderate 03/29/18 14:40 Anisocytosis (manual) Moderate 03/29/18 14:40 Microcytosis (manual) Slight 03/29/18 14:40 Target Cells Slight 03/29/18 14:40 Rouleaux Slight 03/29/18 14:40 Retic Count 3.4 % (0.5-1.5) H 03/29/18 17:33 Haptoglobin 48.1 mg/dL (30.0-200.0) 03/29/18 17:33 PT 18.1 SECONDS (9.7-12.2) H 03/29/18 16:21 INR 1.7 03/29/18 16:21 APTT 32 SECONDS (21-34) 03/29/18 16:21 Sodium 135 mmol/L (132-148) 03/31/18 07:44 Potassium 3.5 mmol/L (3.6-5.2) L 03/31/18 07:44 Chloride 108 mmol/L (98-107) H 03/31/18 07:44 Carbon Dioxide 21 mmol/L (22-30) L 03/31/18 07:44 Anion Gap 10 (10-20) 03/31/18 07:44 BUN 10 mg/dL (9-20) 03/31/18 07:44 Creatinine 0.7 mg/dL (0.8-1.5) L 03/31/18 07:44 Est GFR ( Amer) > 60 03/31/18 07:44 Est GFR (Non-Af Amer) > 60 03/31/18 07:44 Random Glucose 93 mg/dL (75-110) 03/31/18 07:44 Calcium 7.7 mg/dl (8.6-10.4) L 03/31/18 07:44 Phosphorus 3.2 mg/dL (2.5-4.5) 03/31/18 07:44 Magnesium 1.3 mg/dL (1.6-2.3) L 03/31/18 07:44 Iron 12 ug/dL (49-181) L 03/29/18 17:33 TIBC 394 ug/dL (250-450) 03/29/18 17:33 % Saturation 3 (20-55) L 03/29/18 17:33 Ferritin 6.8 ng/mL 03/29/18 17:33 Total Bilirubin 2.2 mg/dL (0.2-1.3) H 03/31/18 07:44 Direct Bilirubin 1.2 mg/dL (0.0-0.4) H 03/29/18 17:33 AST 68 U/L (17-59) H D 03/31/18 07:44 ALT 41 U/L (21-72) 03/31/18 07:44 Alkaline Phosphatase 178 U/L (38-126) H 03/31/18 07:44 Total Protein 6.4 g/dL (6.3-8.3) 03/31/18 07:44 Albumin 2.7 g/dL (3.5-5.0) L 03/31/18 07:44 Globulin 3.7 gm/dL (2.2-3.9) 03/31/18 07:44 Albumin/Globulin Ratio 0.7 (1.0-2.1) L 03/31/18 07:44 Vitamin B12 813 pg/mL (239-931) 03/29/18 17:33 Homocysteine 11.0 umol/L (6.6-14.8) 03/29/18 17:33 Urine Color Claudia (YELLOW) 03/29/18 16:21 Urine Clarity Clear (Clear) 03/29/18 16:21 Urine pH 6.0 (5.0-8.0) 03/29/18 16:21 Ur Specific [place] 1.012 (1.003-1.030) 03/29/18 16:21 Urine Protein Negative mg/dL (NEGATIVE) 03/29/18 16:21 Urine Glucose (UA) Normal mg/dL (Normal) 03/29/18 16:21 Urine Ketones Negative mg/dL (NEGATIVE) 03/29/18 16:21 Urine Blood 2+ (NEGATIVE) H 03/29/18 16:21 Urine Nitrate Negative (NEGATIVE) 03/29/18 16:21 Urine Bilirubin Negative (NEGATIVE) 03/29/18 16:21 Urine Urobilinogen 4.0 mg/dL (0.2-1.0) 03/29/18 16:21 Ur Leukocyte Esterase Neg Juve/uL (Negative) 03/29/18 16:21 Urine WBC (Auto) < 1 /hpf (0-5) 03/29/18 16:21 Urine RBC (Auto) 3 /hpf (0-3) 03/29/18 16:21 Ur Squamous Epith Cells < 1 /hpf (0-5) 03/29/18 16:21 Urine Opiates Screen Negative (NEGATIVE) 03/29/18 16:21 Urine Methadone Screen Negative (NEGATIVE) 03/29/18 16:21 Ur Barbiturates Screen Negative (NEGATIVE) 03/29/18 16:21 Ur Phencyclidine Scrn Negative (NEGATIVE) 03/29/18 16:21 Ur Amphetamines Screen Negative (NEGATIVE) 03/29/18 16:21 U Benzodiazepines Scrn Negative (NEGATIVE) 03/29/18 16:21 U Oth Cocaine Metabols Negative (NEGATIVE) 03/29/18 16:21 U Cannabinoids Screen Negative (NEGATIVE) 03/29/18 16:21 Alcohol, Quantitative < 10 mg/dl (0-10) 03/29/18 14:40 Blood Type O POSITIVE 03/29/18 16:17 Antibody Screen Negative 03/29/18 16:17 - Hospital Course Hospital Course: HPI ( As per admission): Pt is a 58-year-old man with history of alcohol abuse who presents to ED requesting detox for alcohol. Patient states he drinks 12 beers per day for the past 40 years and that his last drink was two days ago. States he has been drinking heavily for at least40 years. Patient also notes that he has a family history of alcohol use disorder - both grandparents. Patient states he is not experiencing any symptoms of withdrawal including tremors, headache, n/v/d/c, dizziness, palpitations, lightheadedness, numbness or tingling of the extremities. Hospital Course: Patient was admitted for acute anemia and pancytopenia secondary to bone marrow suppression 2/2 alcohol abuse. Patient transfused a total of 4 units of PRBC, which he tolerated appropriately. Hematology/Oncology, Dr. Soriano was consulted for further evaluation of pancytopenia. Patient was discharge after a stable H/H with clear instructions as stated below by attending, Dr. Destin Mendes: Extensive conversation with patient concerning the need for alcohol cessation and attendance of AA meetings. Explained that as there are NO signs of withdrawl and that as his HgB/Hct have now improved since the PRBC tranfusions. This was also explained at length to sister Nayely via phone as patient requested requested that she be informed of his status. Explained to patient and Nayely that he will need to follow up with our clinic here at [facility] for referrals for GI for Colonoscopy and Hematology for further evaluation of the pancytopenia and also follow up with the clinic for pending lab results such as the HIV and Hepatitis Panel blood work. Spoke with Nursing Behaviorist Janice to request help in providing patient with transportation voucher so that he may be transported to Sister Nayely's residence. The following instructions were thoroughly explained to patient and sister Nayely and copy will need to be provided to patient upon his discharge: 1). Schedule follow appointment with the [facility]/Clinic located on [address] of [address] in [place], [place] by calling [phone] for an appointment to take place in the next 7 to 10 days. The physicians at this clinic will be your primary care providers and will help you to coordinate your health care. Through this clinic you will need to obtain referrals for Gastroenterology for Colonoscopy that is due as well as evaluation by Lens Mold Setter for your low blood cell counts. You will also need to follow up through the clinic the results of your blood work test for HIV and Hepatitis, and other blood workup for your anemia which were pending at the time of your di scharge. 2). You do not have any signs of alcohol withdrawl at the time of your discharge and therefore as of the time of your discharge your detoxification from alcohol is complete and that is why you were not transferred to the detox unit at [facility]. 3). Please make sure to contact [phone] or [phone] for help in finding the nearest Alcohol Anonymous meeting near you. It is important for your to go to AA meetings and utilize the resources provided by them to help you stop drinking alcohol. 4). You can purchase the following supplements at your pharmacy without a prescription. Please do so. Iron 325 mg, 1 tablet by mouth with breakfast and dinner Generic Multivitamin, 1 tablet by mouth with breakfast 5). Please follow the above instructions. Failure to do so can result in serious harm to your health. 6). Please take care and be well. Inpatient: Lab work-up: * IRON: 12 * TIBC:394 * Ferritin: 6.8 * Vitamin B12: 813 * Homocysteine: 11.0 * Reticulocyte: 3.4 * Haptoglobin:48.1 * F/u Folate, methylmalonic acid and peripheral smear and HIV and Hepatitis Panel * Stool Occult: Negative This is a brief summary of event. For a complete course, please refer to medical records Discharge Exam - Head Exam Head Exam: ATRAUMATIC - Eye Exam Eye Exam: EOMI - ENT Exam ENT Exam: Mucous Membranes Moist - Respiratory Exam Respiratory Exam: Clear to PA & Lateral, NORMAL BREATHING PATTERN. absent: Chest Wall Tenderness, Decreased Breath Sounds, Prolonged Expiratory Phase - Cardiovascular Exam Cardiovascular Exam: REGULAR RHYTHM, +S1, +S2 - GI/Abdominal Exam GI & Abdominal Exam: Normal Bowel Sounds, Soft. absent: Distended, Firm, Guarding, Unremarkable - Neurological Exam Neurological exam: Alert, Normal Gait, Oriented x3 - Psychiatric Exam Psychiatric exam: Normal Affect - Skin Skin Exam: Normal Color Discharge Plan - Follow Up Plan Condition: STABLE Disposition: HOME/ ROUTINE Instructions: Alcohol Use - When Is Drinking a Problem?, Alcohol Abuse and Alcoholism (DC), Effects of Alcohol on Your Health Additional Instructions: The following instructions were thoroughly explained to patient and sister Nayely and copy will need to be provided to patient upon his discharge: 1). Schedule follow appointment with the [facility]/Clinic located on [address] of [address] in [place], [place] by calling [phone] for an appointment to take place in the next 7 to 10 days. The physicians at this clinic will be your primary care providers and will help you to coordinate your health care. Through this clinic you will need to obtain referrals for Gastroenterology for Colonoscopy that is due as well as evaluation by Lens Mold Setter for your low blood cell counts. You will also need to follow up through the clinic the results of your blood work test for HIV and Hepatitis, which were pending at the time of your discharge. 2). You do not have any signs of alcohol withdrawl at the time of your discharge and therefore as of the time of your discharge your detoxification from alcohol is complete and that is why you were not transferred to the detox unit at [facility]. 3). Please make sure to contact [phone] or [phone] for help in finding the nearest Alcohol Anonymous meeting near you. It is important for your to go to AA meetings and utilize the resources provided by them to help you stop drinking alcohol. 4). You can purchase the following supplements at your pharmacy without a prescription. Please do so. Iron 325 mg, 1 tablet by mouth with breakfast and dinner Generic Multivitamin, 1 tablet by mouth with breakfast 5). Please follow the above instructions. Failure to do so can result in serious harm to your health. 6). Please take care and be well. Destin Mendes D.O.
[2018-04-01 08:05] LABS: HEPATITIS A IGM NEGATIVE (NEGATIVE); HEPATITIS B CORE AB NEGATIVE (NEGATIVE)
[2018-04-01 08:17] LABS: HEPATITIS C ANTIBODY NEGATIVE (NEGATIVE)
--- NOTE | 2018-04-01 12:10 | CARD ---
APPROVED REPORT Date of service: 03/29/2018 EKG Measurement Heart [id number] <Conclusion> Normal sinus rhythm Minimal voltage criteria for LVH, may be normal variant Prolonged QT Abnormal ECG
[2018-04-01 12:39] LABS: HEPATITIS B SURFACE AG Reactive (NEGATIVE)
[2018-04-02 10:51] LABS: METHYLMALONIC ACID,SERUM 149 nmol/L (87-318)
== END 2018-03-31 14:00 | disposition home or self-care (01) | DRG 660 ==
LOC: C.ER 13:04 → C.9E 16:46 → C.3T 18:40
PROVIDERS: ADMIT Family Medicine; ATTEND Family Medicine
PROC: 30233N1 Transfusion of Nonautologous Red Blood Cells into Peripheral Vein, Percutaneous Approach (ICD-10-PCS; principal; 2018-03-29)
PROC: HZ2ZZZZ Detoxification Services for Substance Abuse Treatment (ICD-10-PCS; 2018-03-29)
DX: D61.818 Other pancytopenia (principal); E83.42 Hypomagnesemia; E87.6 Hypokalemia; F10.230 Alcohol dependence with withdrawal, uncomplicated; Y90.0 Blood alcohol level of less than 20 mg/100 ml; F12.90 Cannabis use, unspecified, uncomplicated; F17.210 Nicotine dependence, cigarettes, uncomplicated